=== PATIENT | female | born 1945 | race Caucasian/White ===

== ENCOUNTER → 2018-05-10 | Outpatient (REF) | payer MEDICARE ==
[~2018-05-10] MED LIST: ADULT ASPIRIN E81 MG PO; AMLODIPINE10 MG PO; ANESTROZOLE PO; BIOTIN MAXI10000 MC1 PO; CALCIUM600 M1 PO; COQ10200 MG PO; D 10001000 UNIT PO; ESCITALOPRAM OX10 MG PO; MAGNESIUM 250 M1 TAB PO; METOPROLOL SUCC1 TA1 PO; PX OMEPRAZOLE20 MG PO
[2018-05-10 11:41] VITALS: BP 118/46
== END | disposition home or self-care (01) ==
LOC: PO 09:49 → ORM 10:00
PROVIDERS: ATTEND Surgery
DX: Z01.818 Encounter for other preprocedural examination (principal); C50.911 Malignant neoplasm of unspecified site of right female breast; Z86.2 Personal history of diseases of the blood and blood-forming organs and certain disorders involving the immune mechanism; I10 Essential (primary) hypertension; Z90.710 Acquired absence of both cervix and uterus; Z98.890 Other specified postprocedural states; Z72.89 Other problems related to lifestyle; Z97.2 Presence of dental prosthetic device (complete) (partial); R14.0 Abdominal distension (gaseous)

== ENCOUNTER 2018-05-18 06:26 | Day surgery (SDC) | payer MEDICARE ==
[2018-05-18 09:16] VITALS: BP 136/63
== END 2018-05-18 09:40 | disposition home or self-care (01) ==
LOC: ORM 06:26
PROVIDERS: ATTEND Surgery
PROC: 0JPT0WZ Removal of Totally Implantable Vascular Access Device from Trunk Subcutaneous Tissue and Fascia, Open Approach (ICD-10-PCS; principal; 2018-05-18)
PROC: 02PY33Z Removal of Infusion Device from Great Vessel, Percutaneous Approach (ICD-10-PCS; 2018-05-18)
DX: C50.911 Malignant neoplasm of unspecified site of right female breast (principal)

== ENCOUNTER 2021-05-20 07:25 | Day surgery (SDC) | payer MEDICARE ==
[~2021-05-20] VITALS: Ht 157.5 cm; Wt 90.7 kg
[~2021-05-20 07:25] MED LIST changes: +AMLODIPINE BESY10 MG PO; +FARXIGA10 MG; +LIPITOR10 M1 PO
[2021-05-20 10:22] VITALS: BP 181/78
== END 2021-05-20 10:16 | disposition home or self-care (01) ==
LOC: ENDO 07:25 → ORM 09:20 → ENDO 09:20 → ORM 10:15 → ENDO 10:15
PROVIDERS: ATTEND Surgery
PROC: 0DBM8ZX Excision of Descending Colon, Via Natural or Artificial Opening Endoscopic, Diagnostic (ICD-10-PCS; principal; 2021-05-20)
PROC: 0DBL8ZX Excision of Transverse Colon, Via Natural or Artificial Opening Endoscopic, Diagnostic (ICD-10-PCS; 2021-05-20)
DX: Z12.11 Encounter for screening for malignant neoplasm of colon (principal); D12.4 Benign neoplasm of descending colon; D12.3 Benign neoplasm of transverse colon; I10 Essential (primary) hypertension; E78.5 Hyperlipidemia, unspecified; K21.9 Gastro-esophageal reflux disease without esophagitis; Z85.3 Personal history of malignant neoplasm of breast; Z80.0 Family history of malignant neoplasm of digestive organs

== ENCOUNTER 2021-07-15 15:29 | Emergency (ER) | payer MEDICARE ==
[~2021-07-15] VITALS: Ht 157.5 cm; Wt 90.9 kg
[2021-07-15] VITALS (8 sets, daily range): BP systolic 127–150; BP diastolic 55–84
[2021-07-15] MEDS ORDERED: BIOTIN MAXI10000 MC1 (16:48)
[2021-07-15] MEDS ORDERED: ANASTROZOLE1 MG PO (16:49)
[2021-07-15] MEDS ORDERED: POTASSIUM99 MG PO (16:49)
[2021-07-15] MEDS ORDERED: CEPHALEXIN500 MG PO (17:12)
== END 2021-07-15 17:42 | disposition home or self-care (01) ==
LOC: ED 15:29
DX: S00.81XA Abrasion of other part of head, initial encounter (principal); S51.012A Laceration without foreign body of left elbow, initial encounter; S51.811A Laceration without foreign body of right forearm, initial encounter; I10 Essential (primary) hypertension; K21.9 Gastro-esophageal reflux disease without esophagitis; W01.0XXA Fall on same level from slipping, tripping and stumbling without subsequent striking against object, initial encounter; Y92.524 Gas station as the place of occurrence of the external cause